=== PATIENT | male | born 1980 | race Hispanic/Latino ===

== ENCOUNTER → 2017-12-23 | Outpatient (CLI) | payer BC ==
[~2017-12-23] MED LIST: AMLODIPINE BESY10 MG PO; GLIPIZIDE ER5 MG PO; LANTUS 3ML100 UNITS/ SQ; LOSARTAN-HCTZ1 EAC1 PO; METFORMIN HCL500 MG PO
--- NOTE | 2017-12-23 17:43 | Diagnostic Imaging Report ---
PROCEDURE:US RETROPERITONEAL ( KIDNEY ). COMPARISON:Patients [facility], US, US LIVER, 01/19/2017, 8:09. INDICATIONS:malignant hypertension TECHNIQUE: Groves-scale and color sonographic images of the bilateral kidneys and bladder where obtained in transverse and longitudinal planes. FINDINGS: RIGHT KIDNEY: Measures 12.6 cm in length. Cysts: None Solid masses: None Stones: None Hydronephrosis: None Echogenicity: Mildly heterogeneous. LEFT KIDNEY: Measures 13.3 cm in length. Cysts: None Solid masses: None Stones: None Hydronephrosis: None Echogenicity: Mildly heterogeneous Bladder: Normal. Ureteral jets are visible. Prostate: Measures 1.2 x 4.2 x 5.2 cm. Visualized portions of the liver demonstrate increased echotexture suggestive of steatosis. No focal abnormalities in the liver or spleen. CONCLUSION: 1. Heterogeneous renal echotexture is suggestive of developing chronic renal disease. No renal mass or hydronephrosis. 2. Increased hepatic echotexture suggestive of steatosis. Dictated by: Micky Stanton M.D. on 12/23/2017 at 17:48 Electronically approved by: Micky Stanton M.D. on 12/23/2017 at 17:48
== END ==
LOC: US 16:19
PROVIDERS: ATTEND Family Medicine
DX: I10 Essential (primary) hypertension (principal)
CPT/HCPCS: 76770

== ENCOUNTER → 2018-01-20 | Outpatient (CLI) | payer BC ==
--- NOTE | 2018-01-27 13:36 | Polysomnography ---
DATE OF STUDY: January 20, 2018 HISTORY OF PRESENT ILLNESS: The patient has a history of snoring and intermittent apnea at night. He sometimes falls asleep during the day. INTERPRETATION: The patient came to the laboratory for a diagnostic study. Patient slept for 383.5 minutes out of 401.8 minutes. The sleep efficiency was 88.7%. The sleep onset latency was 3 minutes. The patient spent 31.5 minutes in REM sleep, which was 9.3% of the night. The minimal saturation was 94%. There were no apneic events and no hypopneic events. The patient spent only 0.1% of the night in the supine position and the rest of the night in the non-supine position. The minimal heart rate was 25 beats per minute. The [place] Sleep Score was 7. The patient had only mildly increased periodic limb movements. IMPRESSION 1. No evidence of obstructive sleep apnea. 2. Some nocturnal bradycardia. RECOMMENDATIONS 1. Evaluate the patient for other causes of daytime somnolence including side effects of medications, cardiopulmonary disease and anemia. 2. If snoring is an issue, consider an evaluation by ENT. 3. Consider an evaluation with a Holter monitor or cardiology consultation for nocturnal bradycardia. Job#: [id number]
== END ==
LOC: SLEEP 19:34
PROVIDERS: ATTEND Family Medicine
DX: G47.33 Obstructive sleep apnea (adult) (pediatric) (principal)
CPT/HCPCS: 95810

== ENCOUNTER 2018-03-08 07:42 | Inpatient (IN) | payer BC ==
[2018-03-07 15:35] LABS: BASOPHILS % 0.3 % (0.0-1.0); EOSINOPHILS # (AUTO) 0.4 (0.0-0.4); HEMATOCRIT 41.2 % (38.2-49.6); HEMOGLOBIN 14.6 g/dL (14.0-18.0); LYMPHOCYTES # (AUTO) 3.9 (1.0-3.2); LYMPHOCYTES % 39.8 % (18.0-39.1); MEAN CORPUSCULAR HGB CONC 35.4 g/dL (31-35); MEAN CORPUSCULAR VOLUME 84.6 fL (81-99); MONOCYTES # (AUTO) 0.9 (0.2-0.8); MONOCYTES % 9.1 % (4.4-11.3); NEUTROPHILS # (AUTO) 4.5 (2.1-6.9); NEUTROPHILS % 46.4 % (38.7-80.0); PLATELET COUNT 246 x10e3/uL (140-360); RED BLOOD COUNT 4.87 x10e6/uL (4.3-5.7)
[2018-03-07 15:49] LABS: INR 0.86; PARTIAL THROMBOPLASTIN TIME 27.1 seconds (23.8-35.5); PROTHROMBIN TIME 12.5 seconds (11.9-14.5)
[2018-03-07 16:01] LABS: ALANINE AMINOTRANSFERASE 48 IU/L (0-55); ALBUMIN 3.7 g/dL (3.5-5.0); ALKALINE PHOSPHATASE 67 IU/L (40-150); ANION GAP 13.4 mmol/L (8-16); BLOOD UREA NITROGEN 12 mg/dL (7-26); BUN/CREATININE RATIO 13 (6-25); CALCIUM 9.6 mg/dL (8.4-10.2); CARBON DIOXIDE 28 mmol/L (22-29); CHLORIDE 104 mmol/L (98-107); CHOL/HDL RATIO 5.2 (3.9-4.7); CHOLESTEROL 171 MD/DL (0-199); CREATININE, SERUM 0.96 mg/dL (0.72-1.25); EST GLOMERULAR FILTRATION RATE > 60 ML/MIN (60-); GLUCOSE 93 mg/dL (74-118); HDL CHOLESTEROL 33 MG/DL (40-60); LDL CHOLESTEROL 101 MG/DL (60-130); POTASSIUM 3.4 mmol/L (3.5-5.1); SODIUM 142 mmol/L (136-145); TRIGLYCERIDES 187 MG/DL (0-149)
--- NOTE | 2018-03-07 16:37 | Diagnostic Imaging Report ---
EXAMINATION: PA and lateral views of the chest. COMPARISON: None CLINICAL HISTORY: Preoperative evaluation coronary artery disease DISCUSSION: Lines/tubes: None. Lungs: The lungs are well inflated and clear. No pneumonia or pulmonary edema. Pleura: No pleural effusion or pneumothorax. Heart and mediastinum: The cardiomediastinal silhouette is normal. Bones and soft tissues: No acute bony abnormalities. IMPRESSION: No acute cardiopulmonary abnormalities. Signed by: Dr. Timothy Simon M.D. on 03/07/2018 4:34 PM
[2018-03-08] VITALS (35 sets, daily range): BP systolic 131–167; BP diastolic 79–106
[~2018-03-08] VITALS: Ht 190.5 cm; Wt 136.1 kg
[~2018-03-08 07:42] MED LIST changes: +BENICAR HCT 401 EAC1 PO; +CARTIA XT300 MG PO; +CLONIDINE HCL0.1 MG PO; +HYDRALAZINE HCL25 MG PO; +JANUVIA100 MG PO; +METOPROLOL SUCC50 MG PO
[2018-03-08] MEDS ORDERED: MIDAZOLAM HCL 2 MG/2 ML VIAL ONE (08:13)
[2018-03-08] MEDS ORDERED: FENTANYL CITRATE/PF 100MCG/2 ML INJ ONE (08:13)
[2018-03-08] MEDS ORDERED: LIDOCAINE HCL 2% LOCAL 20 ML VIAL ONE (08:13)
[2018-03-08] MEDS ORDERED: HEPARIN SOD/SOD CHLORIDE 2,000 ML ONE (08:13)
[2018-03-08] MEDS ORDERED: SODIUM CHLORIDE 0.9% 1000ML 1,000 ML ONE ×2 (08:13→09:50)
[2018-03-08] MEDS ORDERED: IOPAMIDOL 370 MG/ML 200 ML INFUS..BTL INJ ONE ×2 (08:13→08:55)
[2018-03-08] MEDS ORDERED: HEPARIN SOD (PORCINE) 1000 UNIT/ML 30ML ONE (08:47)
[2018-03-08] MEDS ORDERED: NITROGLYCERIN/D5W 200 MCG/ML 250 ML ONE (08:48)
[2018-03-08] MEDS ORDERED: BIVALIRUDIN 250 MG/VIAL IV ONE (08:57)
[2018-03-08] MEDS ORDERED: SODIUM CHLORIDE 0.9% 50ML 50 ML ONE (08:58)
[2018-03-08] MEDS ORDERED: ASPIRIN 325 MG TAB ONE (09:14)
[2018-03-08] MEDS ORDERED: CLOPIDOGREL BISULFATE 75 MG TAB ONE (09:14)
[2018-03-08] MEDS ORDERED: DEXTROSE 50% SYRINGE 50 ML IV PRN (10:45)
[2018-03-08] MEDS: SODIUM CHLORIDE 0.9% 1000ML 1,000 ML IV SCH (11:00)
[2018-03-08] MEDS: INSULIN REGULAR, HUMAN 100 UNIT/1 ML 3ML VIAL SQ SCH ×3 (11:30→21:05)
[2018-03-08] MEDS ORDERED: ATROPINE SULFATE 0.1 MG/ML 10ML SYR ONE (11:39)
[2018-03-08] MEDS: DILTIAZEM HCL ER 120 MG CAPCR PO SCH (12:24)
[2018-03-08] MEDS: METOPROLOL SUCCINATE 50 MG TAB XL PO SCH (12:24)
[2018-03-08] MEDS: DILTIAZEM HCL 180 MG CAP ER PO SCH (12:25)
[2018-03-08] MEDS: HYDRALAZINE HCL 100 MG TABLET PO SCH ×2 (15:22→21:03)
[2018-03-08] MEDS: CLONIDINE HCL 0.1 MG TAB PO SCH (15:22)
[2018-03-08] MEDS ORDERED: ATORVASTATIN 40 MG TAB PO SCH (21:00)
[2018-03-09] VITALS (11 sets, daily range): BP systolic 123–164; BP diastolic 72–111
[2018-03-09 04:39] LABS: BASOPHILS % 0.3 % (0.0-1.0); EOSINOPHILS # (AUTO) 0.4 (0.0-0.4); EOSINOPHILS % 3.5 % (0.0-6.0); HEMATOCRIT 37.8 % (38.2-49.6); HEMOGLOBIN 13.2 g/dL (14.0-18.0); LYMPHOCYTES # (AUTO) 3.1 (1.0-3.2); MEAN CORPUSCULAR HEMOGLOBIN 29.9 pg (28-32); MEAN CORPUSCULAR HGB CONC 34.9 g/dL (31-35); MEAN CORPUSCULAR VOLUME 85.5 fL (81-99); MONOCYTES # (AUTO) 0.8 (0.2-0.8); MONOCYTES % 8.1 % (4.4-11.3); NEUTROPHILS # (AUTO) 5.7 (2.1-6.9); NEUTROPHILS % 56.6 % (38.7-80.0); PLATELET COUNT 213 x10e3/uL (140-360); RED BLOOD COUNT 4.42 x10e6/uL (4.3-5.7); RED CELL DISTRIBUTION WIDTH 13.1 % (11.7-14.4)
[2018-03-09 05:04] LABS: ANION GAP 15.3 mmol/L (8-16); BLOOD UREA NITROGEN 10 mg/dL (7-26); BUN/CREATININE RATIO 12 (6-25); CALCIUM 8.5 mg/dL (8.4-10.2); CARBON DIOXIDE 26 mmol/L (22-29); CHLORIDE 104 mmol/L (98-107); CREATININE, SERUM 0.86 mg/dL (0.72-1.25); EST GLOMERULAR FILTRATION RATE > 60 ML/MIN (60-); GLUCOSE 121 mg/dL (74-118); POTASSIUM 3.3 mmol/L (3.5-5.1); SODIUM 142 mmol/L (136-145)
[2018-03-09] MEDS: SODIUM CHLORIDE 0.9% 1000ML 1,000 ML IV SCH (06:59)
[2018-03-09] MEDS: INSULIN REGULAR, HUMAN 100 UNIT/1 ML 3ML VIAL SQ SCH (07:00)
--- NOTE | 2018-03-09 07:22 | Operative Report ---
DATE OF PROCEDURE: March 08, 2018 PROCEDURES 1. Left heart catheterization. 2. Selective coronary angiogram. 3. Left ventriculogram. 4. Stent placement in the right coronary artery. INDICATIONS: Chest pain and abnormal stress test. ANESTHESIA: Two percent lidocaine for local anesthesia. Fentanyl and Versed for conscious sedation. BLOOD LOSS: 6 mL. DESCRIPTION OF PROCEDURE: After informed consent, the patient was brought to the cardiac catheterization laboratory and placed on the table. Both groins were painted and draped in a sterile fashion. Lidocaine injected into the right groin for local anesthesia. Right femoral artery was accessed by Seldinger technique, and a 5-Qatari sheath was placed in the right femoral artery. Left main artery was cannulated using a JL4 5-Qatari catheter. Coronary angiogram was performed and images obtained in multiple views. The right coronary artery was cannulated using a 3DRC 5-Qatari catheter. Coronary angiogram was performed and images were obtained in multiple views. LV-gram was performed using a pigtail catheter. After reviewing the images, we decided to intervene on the 80% mid-RCA lesion. The 5-Qatari sheath was exchanged for a 6-Qatari sheath over a guidewire. The right coronary artery was cannulated using a 3DRC 6-Qatari guide. A Prowater wire was manipulated and placed in the distal right coronary artery. The lesion was dilated at 8 atmospheres for about 20 seconds using a 2.5 x 12 mm Emerge balloon. Subsequently, a 3.5 x 15 mm Resolute Con drug-eluting stent was deployed across the lesion at 12 atmospheres for 20 seconds. The stent carrier was removed, and the stent was post dilated using a 3.5 x 12 mm [facility] apex noncompliant balloon. All of this was performed under constant fluoroscopy guidance. Patient was given aspirin, Plavix and Angiomax during the procedure. Patient tolerated the procedure without any complications. REPORT LEFT MAIN: Normal caliber and no significant stenosis. LEFT ANTERIOR DESCENDING: Narrow caliber. There is a 20% to mid-lesion. LEFT CIRCUMFLEX: Normal caliber and no significant stenosis. RIGHT CORONARY ARTERY: Normal caliber. Has 80% proximal/mid-lesion and a 30% mid-distal lesion. LV-GRAM: Preserved LV function. Overall ejection fraction of 50% to 55%. HEMODYNAMICS: Aortic pressure is 194/100. LV pressure is 190/12. LVEDP is 20. Balloon used is a 2.5 x 12 mm Emerge for pre-dilatation and a 3.5 x 12 mm NC Quantum apex for post dilatation. Stent used is a 3.5 x 15 mm Resolute Con drug-eluting stent, which was deployed in the proximal/mid RCA. There was zero percent residual stenosis and CRISTOPHER-III flow noted. Job#: [id number]
[2018-03-09] MEDS ORDERED: CLOPIDOGREL75 MG PO (08:13)
[2018-03-09] MEDS ORDERED: ATORVASTATIN CA80 MG PO (08:14)
[2018-03-09] MEDS ORDERED: NITROGLYCERIN0.4 MG SL (08:15)
[2018-03-09] MEDS ORDERED: POTASSIUM CHLORIDE 20 MEQ TAB CR PO NR (08:15)
[2018-03-09] MEDS: CLONIDINE HCL 0.1 MG TAB PO SCH (08:26)
[2018-03-09] MEDS: DILTIAZEM HCL ER 120 MG CAPCR PO SCH (08:26)
[2018-03-09] MEDS: DILTIAZEM HCL 180 MG CAP ER PO SCH (08:26)
[2018-03-09] MEDS: HYDRALAZINE HCL 100 MG TABLET PO SCH (08:26)
[2018-03-09] MEDS: METOPROLOL SUCCINATE 50 MG TAB XL PO SCH (08:27)
[2018-03-09] MEDS ORDERED: NITROGLYCERIN 0.4 MG SUBL SL PRN (08:45)
[2018-03-09] MEDS ORDERED: NON-FORMULARY MEDICATION (Olmesartan/Hydrochlorothiazide (Benicar Hct 40-25 Mg Tablet) 1 T PO SCH (09:00)
[2018-03-09] MEDS ORDERED: DILTIAZEM HCL 300 MG PO SCH (09:00)
[2018-03-09] MEDS ORDERED: HYDROCHLOROTHIAZIDE 25 MG TAB PO SCH (09:00)
[2018-03-09] MEDS ORDERED: OLMESARTAN 20 MG TAB PO SCH (09:00)
[2018-03-09] MEDS ORDERED: HYDRALAZINE HCL 25 MG TAB PO SCH (09:00)
[2018-03-09] MEDS ORDERED: SITAGLIPTIN 100 MG TAB PO SCH (09:00)
[2018-03-09] MEDS ORDERED: GLIPIZIDE 5 MG TAB ER PO SCH (09:00)
[2018-03-09] MEDS ORDERED: ASPIRIN 325 MG TAB PO SCH (09:00)
[2018-03-09] MEDS ORDERED: METOPROLOL SUCCINATE 50 MG TAB XL PO SCH (09:00)
[2018-03-09] MEDS ORDERED: CLONIDINE HCL 0.1 MG TAB PO SCH (09:00)
[2018-03-09] MEDS ORDERED: CLOPIDOGREL BISULFATE 75 MG TAB PO SCH ×2 (09:00)
[2018-03-09] MEDS ORDERED: NON-FORMULARY MEDICATION (Atorvastatin Calcium 80 MG) PO SCH (21:00)
[2018-03-09] MEDS ORDERED: INSULIN DETEMIR 100 UNIT/ML PEN SQ SCH (21:00)
[2018-03-10] MEDS ORDERED: METFORMIN HCL 500 MG TAB PO SCH (08:00)
== END 2018-03-09 09:51 | disposition home or self-care (01) | DRG 247 ==
LOC: CATH LAB 07:42 → PACU V 09:00 → ICU 12:29
PROC: 027034Z Dilation of Coronary Artery, One Artery with Drug-eluting Intraluminal Device, Percutaneous Approach (ICD-10-PCS; principal; 2018-03-08)
PROC: 4A023N7 Measurement of Cardiac Sampling and Pressure, Left Heart, Percutaneous Approach (ICD-10-PCS; 2018-03-08)
PROC: B2111ZZ Fluoroscopy of Multiple Coronary Arteries using Low Osmolar Contrast (ICD-10-PCS; 2018-03-08)
PROC: B2151ZZ Fluoroscopy of Left Heart using Low Osmolar Contrast (ICD-10-PCS; 2018-03-08)
DX: I25.10 Atherosclerotic heart disease of native coronary artery without angina pectoris (principal); E11.9 Type 2 diabetes mellitus without complications; R07.2 Precordial pain; I10 Essential (primary) hypertension; E78.5 Hyperlipidemia, unspecified; E66.9 Obesity, unspecified; Z68.37 Body mass index [BMI] 37.0-37.9, adult; Z87.891 Personal history of nicotine dependence
CPT/HCPCS: 36415; 71046; 80048; 80053; 80061; 82948; 85025; 85610; 85730; 92920; 92928; 93005; 93458; J0583; J1644; J2001; J2250; J7030; Q9967